=== PATIENT | female | born 1955 | race Two or more races ===

== ENCOUNTER → 2024-06-13 | Day surgery (SDC) | payer MEDICARE, BC ==
[2024-06-10 15:04] LABS: Urine Bacteria None Seen /hpf (None Seen)
[2024-06-10 15:07] LABS: Basophils # (auto) 0 10 ^3/uL (0-0.2); Eosinophils # (auto) 0.1 10 ^3/uL (0-0.8); Monocytes # (auto) 0.3 10 ^3/uL (0-1.3); Neutrophils # (auto) 2.7 10 ^3/uL (1.6-8.6); Red Cell Distribution Width 13.2 % (11.8-14.3); White Blood Cell 4.5 10^3/uL (4.4-10.8)
[2024-06-10 15:09] LABS: Basophils % (auto) 0.6 % (0.0-2.0); Eosinophils % (auto) 1.8 % (0.0-7.0); Lymphocytes # (auto) 1.3 10 ^3/uL (0.4-5.4); Lymphocytes % (auto) 29.4 % (10.0-50.0); Mean Corpuscular Hemoglobin 35.5 pg (28.0-32.0); Mean Corpuscular Hgb Conc. 34.2 g/dL (32.0-36.0); Mean Corpuscular Volume 103.7 fL (80.0-100.0); Monocytes % (auto) 7.4 % (0.0-12.0); Neutrophils % (auto) 60.8 % (37.0-80.0); Platelet Count (auto) 220 10^3/uL (140-450); Red Blood Cells 3.66 10^6/uL (4.0-5.20)
[2024-06-10 15:36] LABS: INR 0.97 (0.9-1.15); Partial Thromboplastin Time 23.9 SEC (24.5-34.5); Prothrombin Time 10.5 sec (9.3-11.8)
[2024-06-10 16:02] LABS: Urine Blood Negative /uL (Negative); Urine Clarity Clear (Clear); Urine Color Colorless (Yellow); Urine Protein, UAD Negative (Negative); Urine Specific Gravity 1.008 (1.001-1.035); Urine Urobilinogen Normal (Negative); Urine WBC <1 /hpf (0 - 5); Urine pH 7.5 (5.0-9.0)
[2024-06-10 16:18] LABS: Alanine Aminotransferase 55 U/L (7-40); Albumin 4.7 g/dL (3.2-4.8); Alkaline Phosphatase 40 U/L (46-116); Anion Gap 9 (5-15); Aspartate Aminotransferase 32 U/L (13-40); BUN/Creatinine Ratio 15.9 (10.0-20.0); Blood Urea Nitrogen 10 mg/dL (9-23); Calcium 9.8 mg/dL (8.7-10.4); Carbon Dioxide 25 mmol/L (20-30); Chloride 111 mmol/L (98-107); Glucose 102 mg/dL (74-106); Potassium 4.4 mmol/L (3.5-5.1); Sodium 145 mmol/L (136-145)
[2024-06-10 16:19] LABS: Bilirubin, Total 0.5 mg/dL (0.2-1.0); Total Protein 7.3 g/dL (5.7-8.2)
[~2024-06-13] VITALS: Ht 152.4 cm; Wt 51.7 kg
[~2024-06-13] MED LIST: ATOR-507 PO; BUTA1CAP6 PO; DENO60SO SC; DEXL60CA4 PO; EZET10TA22 PO; HYDR-4795 PO; LIDO5DIS21 TOP; LIDOCAINE 2% (LOCAL ANESTH.) PF 5ml SDV ONE; MAGN241.4 PO; NIAC1TAB32 PO; PROP80CA40 PO; PROPOFOL 10 MG/ML 20 ML IV ONE; TOPI25TA43 PO
[2024-06-13 14:40] VITALS: TEMP 97; O2SAT 100
[2024-06-13 15:00] VITALS: BP 139/73; PULSE 81; RESP 18; O2SAT 99
== END | disposition home or self-care (01) ==
LOC: GI 11:06
PROVIDERS: ATTEND Internal Medicine Gastroenterology
DX: R10.84 Generalized abdominal pain (principal); K29.50 Unspecified chronic gastritis without bleeding; K64.8 Other hemorrhoids; K63.89 Other specified diseases of intestine; K22.89 Other specified disease of esophagus; G43.909 Migraine, unspecified, not intractable, without status migrainosus; K21.9 Gastro-esophageal reflux disease without esophagitis; Z88.0 Allergy status to penicillin; Z90.710 Acquired absence of both cervix and uterus; Z98.891 History of uterine scar from previous surgery; Z98.890 Other specified postprocedural states; Z68.41 Body mass index [BMI] 40.0-44.9, adult; Z68.42 Body mass index [BMI] 45.0-49.9, adult
CPT/HCPCS: 36415; 43239; 45378; 80053; 81001; 85025; 85610; 85730; J2001; J2704; J7030